=== PATIENT | male | born 2000 | race Caucasian/White ===

== ENCOUNTER 2021-02-01 15:19 | Emergency (ER) | payer OTHER, SELFPAY ==
[2021-02-01] VITALS (9 sets, daily range): BP systolic 126–144; BP diastolic 61–79; PULSE 66–84; RESP 14–21; TEMP 35.9; O2SAT 91–98; BMI 36.1
--- NOTE | 2021-02-01 15:32 | DI.RAD.S_ITS ---
PROCEDURE: XR CHEST 2V INDICATIONS: cough, chest pressure when laying flat TECHNIQUE: 2 views of the chest were acquired. COMPARISON: [facility], , THORACIC SPINE 2 VIEWS, 10/26/2014, 21:32. FINDINGS: Surgical changes and devices: None. Lungs and pleura: Lungs are clear. No pleural effusions or pneumothorax. Mediastinum: Mediastinal contours are normal. Heart size is normal. Bones and chest wall: No suspicious bony abnormalities. Soft tissues appear unremarkable. IMPRESSION: No significant plain film abnormality is seen. Dictated by: Elieser Thompson M.D. on 02/01/2021 at 14:50 Approved by: Elieser Thompson M.D. on 02/01/2021 at 14:50
[2021-02-01 16:08] LABS: COVID19 -Nasal RAPID Negative (Negative)
--- NOTE | 2021-02-01 16:25 | PC.NURSE ---
Patient notified this RN that he does have vague suicidal ideation and has been unsuccessful in the past with attempts because my body won't let me. Patient clarified that when he kills himself he doesn't want to suffer or be left alive. Does not currently have a plan and reports ongoing mental health struggles since childhood. Notified Charge and provider, new orders for social work consult.
[2021-02-01 16:33] LABS: Add Manual Diff / Slide Review NO; Basophils Absolute Auto 0 /uL (0-100); Basophils Percent Auto 0.5 % (0-2); Eosinophils Absolute Auto 100 /uL (0-450); Eosinophils Percent Auto 1.7 % (2-4); Hematocrit 45.2 % (41-53); Lymphocytes Absolute Auto 2200 /uL (1100-4500); Lymphocytes Percent Auto 28.2 % (25-40); Mean Corpuscular HGB Conc 35.4 % (30-36); Mean Corpuscular Hemoglobin 30.6 PG (26-34); Mean Corpuscular Volume 86.4 fL (80-100); Monocytes Absolute Auto 500 /uL (0-900); Monocytes Percent Auto 6.5 % (3-14); Neutrophils Absolute Auto 5000 /uL (1500-7000); Neutrophils Percent Auto 63.1 % (50-75); Platelet Count 252 X10^3/uL (150-400); Red Blood Cell Count 5.23 X10^6/uL (4.5-5.9); Red Cell Distribution Width 12.4 % (11.6-14.8); White Blood Cell Count 7.9 X10^3/uL (4.5-11.0)
--- NOTE | 2021-02-01 16:35 | ED_ITS ---
HPI - General Adult General Chief complaint: Shortness of Breath/Dyspnea Stated complaint: chest pains Time Seen by Provider: 02/01/21 15:56 Source: patient Mode of arrival: Ambulatory History of Present Illness HPI narrative: Patient is a 20-year-old male who is here for evaluation approximately 1 month of shortness of breath and chest discomfort. He states that is been daily for the past month. Does not get better worse throughout the day. Has not tried anything for it. Has not been evaluated. No cough. No fevers. Is unvaccin ated against COVID-19. No prior lung pathology. Describes the chest pain as a pressure. Does not change with movement. Related Data Home Medications Medication Instructions Recorded Confirmed ACETAMINOPHEN 650 mg PO Q6HP PRN #0 tab 12/16/12 Allergies Allergy/AdvReac Type Severity Reaction Status Date / Time citric acid [CITRIC ACID] Allergy Intermediate Unverified 02/01/21 15:31 Review of Systems Constitutional Constitutional: Denies fever(s) and Denies headache(s) ENT Ears, Nose, Mouth, and Throat: Reports system reviewed and no additional complaints, except as documented and Denies headache(s) Cardiovascular Cardiovascular: Reports as per HPI and Reports system reviewed and no additional complaints, except as documented Respiratory Respiratory: Reports as per HPI and Reports system reviewed and no additional complaints, except as documented Gastrointestinal Gastrointestinal: Reports as per HPI and Reports system reviewed and no additional complaints, except as documented Integumentary/Breasts Skin/Breast: Reports system reviewed and no additional complaints, except as documented Neurologic Neurologic: Reports system reviewed and no additional complaints, except as documented and Denies headache(s) Hematologic/Lymphatic On Anticoagulants: No Allergic/Immunologic Allergic/Immunologic: Reports system reviewed and no additional complaints, except as documented Patient History Medical History Strep pharyngitis Social History Smoking Status: Current every day smoker Smoking Status: Current every day smoker alcohol intake frequency: holidays/special occasions only Substance Use Type: marijuana Exam Initial Vital Signs Initial Vital Signs: Vital Signs Temperature 96.6 F L 02/01/21 15:28 Pulse Rate 72 02/01/21 15:28 Respiratory Rate 14 02/01/21 15:28 Blood Pressure 144/69 H 02/01/21 15:28 Pulse Oximetry 97 02/01/21 15:28 Const General: cooperative, healthy appearing and comfortable Limitations: mental status not altered HENMT Head: normal to inspection and normocephalic Neck Neck: normal visual inspection Chest Chest: normal inspection of the chest Resp Effort & Inspection: normal respiratory effort Auscultation: clear to auscultation bilaterally Cardio Rate: regular rate Rhythm: regular rhythm GI Inspection: non-distended Palpation: soft, No firm and No tender Skin General: no rashes or lesions noted Neuro General: patient alert, patient awake, patient oriented x3 and moves all extremities Extrem General: capillary refill normal Psych Appearance: grossly normal and well kempt Course Orders Ordered: ED Orders 02/01/21 15:32 Chest [XR chest 2V] Stat 02/01/21 15:35 EKG-12 Lead Stat 02/01/21 15:38 COVID19 -Nasal swab/Pre-Proc Stat 02/01/21 16:17 Complete Blood Count AUTO DIFF Stat Comprehensive Metabolic Panel Stat Lipase Stat Troponin & CK Cardiac Panel Stat 02/01/21 16:23 Consult to TRIAGE REGISTERED NURSE - Staff Midwife/Apprenticeship Director Stat 02/01/21 16:36 COVID19 -Nasal swab/Pre-Proc Stat RT Consult Eval and Treat Now Discontinued Medications Albuterol (Albuterol 2.5 Mg/3 Ml Neb (Adult)) 2.5 mg INH NOW ONE Stop: 02/01/21 17:05 Last Admin: 02/01/21 17:50 Dose: 2.5 mg Documented by: [facility] Vital Signs Vital signs: Vital Signs - 8 hr 02/01/21 15:28 02/01/21 16:10 02/01/21 16:30 Temperature 96.6 F L Pulse Rate 72 84 83 Respiratory Rate 14 19 Blood Pressure 144/69 H 137/79 Pulse Oximetry 97 98 97 02/01/21 16:31 02/01/21 17:00 02/01/21 17:30 Temperature Pulse Rate 72 66 77 Respiratory Rate 21 18 20 Blood Pressure 126/61 126/77 137/62 Pulse Oximetry 98 96 97 02/01/21 17:52 Temperature Pulse Rate 68 Respiratory Rate 21 Blood Pressure Pulse Oximetry 94 Medical Decision Making Lab Data Lab results reviewed: Yes I reviewed the patient's lab results. Result diagrams: 02/01/21 16:17 02/01/21 16:17 Labs: Lab Results 02/01/21 02/01/21 02/01/21 Range/Units 15:38 16:17 16:17 WBC 7.9 (4.5-11.0) X10^3/uL RBC 5.23 (4.5-5.9) X10^6/uL Hgb 16.0 (13.5-17.5) g/dL Hct 45.2 (41-53) % MCV 86.4 (80-100) fL MCH 30.6 (26-34) PG MCHC 35.4 (30-36) % RDW 12.4 (11.6-14.8) % Plt Count 252 (150-400) X10^3/uL Neut % (Auto) 63.1 (50-75) % Lymph % (Auto) 28.2 (25-40) % Parker % (Auto) 6.5 (3-14) % Eos % (Auto) 1.7 L (2-4) % Baso % (Auto) 0.5 (0-2) % Neut # (Auto) 5000 (1752-0553) /uL Lymph # (Auto) 2200 (2749-5423) /uL Parker # (Auto) 500 (0-900) /uL Eos # (Auto) 100 (0-450) /uL Baso # (Auto) 0 (0-100) /uL Sodium 139 (137-145) mmol/L Potassium 4.2 (3.4-5.1) mmol/L Chloride 103 (98-107) mmol/L Carbon Dioxide 25 (22-32) mmol/L BUN 10 (9-20) mg/dL Creatinine 0.83 (0.66-1.25) mg/dL Estimated GFR > 60.0 (>60) mL/min BUN/Creatinine Ratio 12.0 (6-22) Glucose 97 (70-100) mg/dL Calcium 9.8 (8.4-10.2) mg/dL Total Bilirubin 0.9 (0.2-1.3) mg/dL AST 25 (17-59) IU/L ALT 22 (<50) IU/L Alkaline Phosphatase 75 (38-126) U/L Total Creatine Kinase 84 (55-170) U/L CK-MB (CK-2) TNP CK-MB (CK-2) Rel Index TNP Troponin I < 0.012 (0.01-0.034) ng/mL Total Protein 8.1 (6.3-8.2) g/dL Albumin 4.7 (3.5-5.0) g/dL Globulin 3.4 (1.7-4.1) g/dL Albumin/Globulin Ratio 1.4 (1.0-2.8) Lipase 42 (23-300) U/L SARS-CoV-2 (PCR) Negative (Negative) Imaging Data Chest x-ray: Radiologist's Impression: [address] [address] XRay Report Signed Patient: Ryan Alvarado MR#: [id number] : 2000 Acct:[id number] Age/Sex: 20 / M Date of Service: 02/01/21 Loc: ED Accession Number: [id number] ?? Procedure: XR chest 2V Ordering Provider: Jb Humphrey D.O. PROCEDURE:? XR CHEST 2V ? INDICATIONS:? cough, chest pressure when laying flat ? TECHNIQUE:? 2 views of the chest were acquired.? ? COMPARISON:? [facility], , THORACIC SPINE 2 VIEWS, 10/26/2014, 21:32. ? FINDINGS:? ? Surgical changes and devices:? None.? ? Lungs and pleura:? Lungs are clear.? No pleural effusions or pneumothorax.? ? Mediastinum:? Mediastinal contours are normal.? Heart size is normal.? ? Bones and chest wall:? No suspicious bony abnormalities.? Soft tissues appear unremarkable.? ? IMPRESSION:? ? No significant plain film abnormality is seen. ? ? Dictated by: Elieser Thompson M.D. on 02/01/2021 at 14:50 ? ? Approved by: Elieser Thompson M.D. on 02/01/2021 at 14:50? ECG Data Attestation: I personally reviewed and interpreted this ECG as follows: Prior ECG tracings: not available for review Interpretation: Sinus rhythm Ventricular rate of 74 Normal axis Normal QRS Normal QTC No ST T wave changes MDM Narrative Medical decision making narrative: EKG is unremarkable. Chest x-ray is unremarkable. Labs unremarkable. No signs of infection. No indication for antibiotics. He was given a nebulizer treatment which she states did not changes discomfort. Not in heart failure. During the screening exam patient states he occasionally has thoughts of suicidal ideation. Patient was seen by social work. Patient is not voluntary. Social work did discuss the case with the [facility] who did not specifically evaluate the patient a given our discussion did not think that he would meet the criteria for an involuntary admission. Patient did state that he would return to the emergency department if he felt like he was getting more depressed or had thoughts of hurting himself. Patient states he felt safe to go home. Unsure the exact etiology of his shortness of breath and chest discomfort however low suspicion for ACS. Low suspicion for PE. Low suspicion for pneumonia. He was given follow-up instructions. He expressed understanding and agreement. Discharge Plan Departure Patient Disposition: Home Clinical Impression: Atypical chest pain Instructions: DI for Atypical Chest Pain Activity Restrictions/Additional Instructions: I recommend that he use the resources that were provided to you. Please return to the emergency department if you start to feel depressed or have thoughts of hurting yourself. Your workup here in the emergency department is very reassuring. There is no signs of any infection. Your heart and lungs both look well. You can contact the call center at [phone] help establish a primary provider. Prescriptions: No Action ACETAMINOPHEN 650 mg PO Q6HP PRNQty: 0 0RF Referrals: Cristian Bocanegra MD [Primary Care Provider] -
[2021-02-01 16:40] LABS: Alanine Aminotransferase 22 IU/L (<50); Albumin 4.7 g/dL (3.5-5.0); Albumin Globulin Ratio 1.4 (1.0-2.8); Alkaline Phosphatase 75 U/L (38-126); Aspartate Aminotransferase 25 IU/L (17-59); Bilirubin Total 0.9 mg/dL (0.2-1.3); Blood Urea Nitrogen 10 mg/dL (9-20); Calcium 9.8 mg/dL (8.4-10.2); Carbon Dioxide 25 mmol/L (22-32); Chloride 103 mmol/L (98-107); Creatine Kinase 84 U/L (55-170); Estimated Glomerular Filt Rate > 60.0 mL/min (>60); Globulin 3.4 g/dL (1.7-4.1); Glucose 97 mg/dL (70-100); HEMOLYSIS < 15 (0-50); Lipase 42 U/L (23-300); Potassium 4.2 mmol/L (3.4-5.1); Sodium 139 mmol/L (137-145); Total Protein 8.1 g/dL (6.3-8.2)
[2021-02-01 17:24] LABS: Troponin I < 0.012 ng/mL (0.01-0.034)
--- NOTE | 2021-02-01 17:41 | CM.SWNOTE ---
ASSISTANT FINANCIAL ACCOUNTANT Assessment ASSISTANT FINANCIAL ACCOUNTANT - Transport Tech Assessment ASSISTANT FINANCIAL ACCOUNTANT/Transport Tech Assessment Time Spent with Patient Start date 02/01/21 Visit Start Time 16:30 End date 02/01/21 Visit End Time 16:50 Total time Care Management spent on 20 patient visit-in minutes Mental Health Screening Include Onset, Duration, Intensity Presenting Problem Patient presents to ED with concern for shortness of breath. In passing, patient informs RN that he has SI with plans since childhood and if he attempted to kill self he would want it to actually kill him. Precipitating Event(s) Patient is homeless with limited family supports. Patient Strengths Patient states his family would be sad if he and that is what is keeping him alive, Patient states that he feels safe. Current Behavioral Health Provider(s) None, patient endorses he is Include Facility, Provider, Ph. # not interested in providers. Psych. Hx Mental Health and Chemical No reported MH dx. Patient Dependency presents with depression and SI. Patient is an everyday smoker, occasional ETOH use and patient endorses THC use. Family Hx of Behavioral Abuse None reported Psychiatric Hospitalizations (date(s)/ None reported location) Psychosocial information & Support Patient is 20 y/o male who Systems endorses that he has been homeless since the age of 17. Patient states that he resides in [place] area sometimes and stays at family's home as needed. Patient endorses he will can stay at his sister's dad's house this evening. School/Work None reported Legal Concerns Legal Matters - Outstanding Issues None reported Mental Status Orientation (Person/Place/Time) A/Ox4 Stated Mood fine Affect (Congruent with Mood?) flat, congruent with mood Thought Content - Specify/Describe None reported Obsessions, Delusions, Hallucinations Thought Processes (Nnxsoso-Geghdscr-Zjnv coherent Rhdplsle-Swgmftjv-Ytnpdipkdw- Nuszdxosmwisnk-Sgsebkp-Xudtoppnddrk- Thought Blocking) Speech (Xhvrdk-Ofwa-Mdifboi-Rapid-Soft- normal Loud-Pressured) Motor (Nlabia-Azxxlsbro-Zjln-Other) normal, not formally assessed Insight (Hfyn-Tlyb-Usbo/Limited) fair/limited Judgement (Nymw-Pmtm-Hlgw/Limited) poor/fair Impulse Control (Adequate-Impaired) adequate Memory (Jrjygxcyz-Uexcug-Fcxwbe, intact, not formally assessed Impaired-Intact) Concentration (Intact-Impaired) intact Attention (Intact-Impaired) intact Behavior (Appropriate-Inappropriate) appropriate Additional Comment patient is calm and communicative Risk Assessment Suicidal Ideation (Plan) Yes Homicidal Ideation (Plan) No Comment Patient endorses daily SI since childhood. Patient endorses that this is the norm for him. Patient endorses self harm and shows scars on both of his arms. Patient endorses that if there were a gun in this room he would shoot self and patient would be when ASSISTANT FINANCIAL ACCOUNTANT returns . Patient endorses thoughts of running into traffic and states that everyone has these thoughts. Patient endorsed to RN that he has not been to a doctor since he was 13 y/o because I do not want to be here anymore. Patient endorses that his family is the only reason he is still alive. Patient states that I would have done it by now if it were up to me. Intervention Intervention ASSISTANT FINANCIAL ACCOUNTANT receives consult and enters room. Patient endorses his thoughts of SI with plan and states that he has no interest to seek support for these thoughts. patient endorses that this is his normal state of mind. Patient states I am , I exist. Patient states he is homeless, does not doing anything for enjoyment and just lives. Patient endorses some family support but states that it is limited and he stays with family sometimes. Patient states that his family is the reason why he is still alive. Patient feels obligated to stay alive due to their feelings. Patient states that if he was going to kill himself he would have done it by now. Patient states he feels safe discharging if he was medically clear to do so. Patient denies wanting to go to voluntary inpatient treatment or seek a BH provider. ASSISTANT FINANCIAL ACCOUNTANT reviews this with ED provider who suggests ASSISTANT FINANCIAL ACCOUNTANT calls [facility] to consult patient. ASSISTANT FINANCIAL ACCOUNTANT calls [facility] crisis line and discusses patient with [facility] intake and requests return call from [facility]. It is reported that based on ASSISTANT FINANCIAL ACCOUNTANT's description, patient does not meet detainment criteria because patient feels safe and his family is preventing him from killing self. ASSISTANT FINANCIAL ACCOUNTANT to await f/u call from [facility]. It is the opinion of this ASSISTANT FINANCIAL ACCOUNTANT that patient would benefit from inpatient hospitalization but patient is not voluntary to do so and it is undetermined if patient would meet [facility] criteria at this time. Patient endorses his safety upon d/c. ASSISTANT FINANCIAL ACCOUNTANT reviews this with ED provider who indicates agreement and understanding Plan RA Plan ASSISTANT FINANCIAL ACCOUNTANT to consult further with [facility] to determine dispatch for [facility] or not. IBETH Goemz
[2021-02-01] MEDS: ALBUTEROL 2.5 MG/3 ML NEB (ADULT) INH (17:50)
--- NOTE | 2021-02-01 18:14 | CM.SWNOTE ---
MACERATOR OPERATOR Note MACERATOR OPERATOR consults with VIVEK Sierra who determines that patient appears to be able to contract for safety due to family as a protective factor and patient endorsing his safety. Rigo suggests MACERATOR OPERATOR ask patient about contacting family, providing patient with crisis contact information and informing patient that he can return to the ED. It is discussed that at this moment patient is not in need of a [facility] dispatch for assessment. MACERATOR OPERATOR enters room to meet with patient again. Patient provides consent for MACERATOR OPERATOR to contact patient's step father, where he is going tonight. Patient endorses need for taxi to location. Patient endorses his hx of suicide attempts several years ago, drinking bleach, drinking rat poison and trying to hang himself and most recently a few years ago he tried to cut himself. Patient states that for the most part he has given up on trying to kill self. MACERATOR OPERATOR calls patient's step father Neal Arora and leaves requesting return call. MACERATOR OPERATOR attempts to call patient's mother but the phone line is busy. Per business development sales executive, mother stated that the plan is for patient to stay with step father. Patient agrees to return to ED if needed, patient agrees to accept crisis contact information from MACERATOR OPERATOR. Plan: Patient to d/c to step father's home when medically clear. IBETH Gomez
== END 2021-02-01 18:44 | disposition home or self-care (01) ==
PROVIDERS: Emergency Provider Emergency Medicine; Family Provider Pediatrics; PCP Pediatrics
DX: R07.89 Other chest pain (principal); R06.02 Shortness of breath; R45.851 Suicidal ideations; Z20.822 Contact with and (suspected) exposure to COVID-19
CPT/HCPCS: 36415; 71046; 80053; 82550; 83690; 84484; 85025; 87635; 93005; 94640; 99284; C9803; J7613

== ENCOUNTER → 2024-05-16 14:22 | Outpatient (CLI) | payer OTHER, SELFPAY ==
--- NOTE | 2024-05-16 14:24 | DI.RAD.S_ITS ---
PROCEDURE: XR CHEST 2V INDICATIONS: cough, tob use TECHNIQUE: 2 views of the chest were acquired. COMPARISON: [facility], CR, XR CHEST 2V, 02/01/2021, 15:26. FINDINGS: Surgical changes and devices: None. Lungs and pleura: Lungs are clear. No pleural effusions or pneumothorax. Mediastinum: Mediastinal contours are normal. Heart size is normal. Bones and chest wall: No suspicious bony abnormalities. Soft tissues appear unremarkable. IMPRESSION: No acute cardiopulmonary abnormality is seen. Dictated by: Jamie Paris M.D. on 05/18/2024 at 8:06 Approved by: Jamie Paris M.D. on 05/18/2024 at 8:06
[2024-05-16 14:42] LABS: Add Manual Diff / Slide Review NO; Basophils Absolute Auto 100 /uL (0-100); Basophils Percent Auto 1.1 % (0-2); Eosinophils Absolute Auto 100 /uL (0-450); Eosinophils Percent Auto 0.9 % (2-4); Hematocrit 45.9 % (41-53); Hemoglobin 16.1 g/dL (13.5-17.5); Lymphocytes Absolute Auto 2300 /uL (1100-4500); Lymphocytes Percent Auto 30.2 % (25-40); Mean Corpuscular Hemoglobin 30.7 PG (26-34); Mean Corpuscular Volume 87.7 fL (80-100); Monocytes Absolute Auto 600 /uL (0-900); Monocytes Percent Auto 7.5 % (3-14); Neutrophils Absolute Auto 4600 /uL (1500-7000); Neutrophils Percent Auto 60.3 % (50-75); Platelet Count 254 X10^3/uL (150-400); Red Blood Cell Count 5.24 X10^6/uL (4.5-5.9); Red Cell Distribution Width 12.8 % (11.6-14.8); White Blood Cell Count 7.6 X10^3/uL (4.5-11.0)
[2024-05-16 15:05] LABS: Alanine Aminotransferase 30 IU/L (<50); Albumin 4.8 g/dL (3.5-5.0); Albumin Globulin Ratio 1.5 (1.0-2.8); Alkaline Phosphatase 65 U/L (38-126); Aspartate Aminotransferase 31 IU/L (17-59); BUN Creatinine Ratio 17.1 (6-22); Bilirubin Total 1.1 mg/dL (0.2-1.3); Blood Urea Nitrogen 13 mg/dL (9-20); Calcium 9.6 mg/dL (8.4-10.2); Carbon Dioxide 20 mmol/L (22-32); Chloride 105 mmol/L (98-107); Estimated Glomerular Filt Rate > 60 mL/min (>60); Globulin 3.3 g/dL (1.7-4.1); Glucose 100 mg/dL (70-100); HEMOLYSIS < 15 (0-50); Potassium 4.5 mmol/L (3.4-5.1); Sodium 138 mmol/L (137-145); Total Protein 8.1 g/dL (6.3-8.2)
[2024-05-16 15:36] LABS: TSH w/ Reflex to FT4 2.23 uIU/mL (0.47-4.68)
[2024-05-16 15:55] LABS: Vitamin B12 609 pg/mL (239-931)
== END ==
LOC: RAD 14:23
PROVIDERS: Family Provider Pediatrics; PCP Family Medicine; Referring Provider Family Medicine; Visit Provider Family Medicine
DX: R05.9 Cough, unspecified (principal); F17.200 Nicotine dependence, unspecified, uncomplicated; R53.82 Chronic fatigue, unspecified; F41.1 Generalized anxiety disorder; E63.9 Nutritional deficiency, unspecified
CPT/HCPCS: 36415; 71046; 80053; 82306; 82607; 84443; 85025

== ENCOUNTER 2024-05-27 14:58 | Emergency (ER) | payer OTHER, SELFPAY ==
[2024-05-27 15:06] VITALS: BP 153/70; PULSE 91; RESP 24; TEMP 36.4; O2SAT 98; BMI 33.5
--- NOTE | 2024-05-27 15:12 | DI.RAD.S_ITS ---
PROCEDURE: XR CHEST 1V INDICATIONS: Shortness of breath TECHNIQUE: One view of the chest was acquired. COMPARISON: [facility], , XR CHEST 2V, 05/16/2024, 14:41. [facility], CR, XR CHEST 2V, 02/01/2021, 15:26. FINDINGS: Surgical changes and devices: None. Lungs and pleura: Lungs are clear. No pleural effusions or pneumothorax. Peribronchial cuffing. Mediastinum: Mediastinal contours are normal. Heart size is normal. Bones and chest wall: No suspicious bony abnormalities. Soft tissues appear unremarkable. IMPRESSION: Peribronchial cuffing, typically indicating infectious or inflammatory bronchitis. Dictated by: Moreno Quiroz M.D. on 05/27/2024 at 15:52 Approved by: Moreno Quiroz M.D. on 05/27/2024 at 15:53
[2024-05-27 16:03] LABS: Influenza A - CEPHEID Flu A NEGATIVE (NEGATIVE); Influenza B - CEPHEID Flu B NEGATIVE (NEGATIVE); Respiratory Syncytial Virus Negative (Negative)
[2024-05-27 16:04] LABS: COVID-19 CEPHEID 4-PLEX PCR Negative (Negative)
--- NOTE | 2024-05-27 16:05 | ED_ITS ---
HPI - URI/Sore Throat <Harleen Pittman PA-C - Last Filed: 05/27/24 18:06> General Chief Complaint: Upper Respiratory Symptoms Stated Complaint: SOB sinus infection Time Seen by Provider: 05/27/24 15:17 Source: patient and family Mode of arrival: Ambulatory History of Present Illness HPI Narrative: 23-year-old male with past medical history generalized anxiety disorder, agoraphobia, tobacco dependence presents to the ED with 6 days of URI symptoms. Patient complains of a sore throat, rhinorrhea, congestion, cough. No fever, chills, chest pain, shortness of breath, lightheadedness, dizziness, syncope. Related Data Previous Rx's Medication Instructions Recorded cetirizine 10 mg tablet (Zyrtec) 10 mg PO DAILY PRN allergy 05/16/24 symptoms #90 tabs fluoxetine 20 mg capsule (Prozac) 20 mg PO DAILY #30 caps 05/16/24 gabapentin 300 mg capsule 300 mg PO Q8H PRN anxiety #90 caps 05/16/24 Allergies Allergy/AdvReac Type Severity Reaction Status Date / Time citric acid [CITRIC ACID] Allergy Intermediate Verified 05/16/24 13:46 Review of Systems <Harleen Pittman PA-C - Last Filed: 05/27/24 18:06> Constitutional Constitutional: Denies chills, Denies fatigue, Denies fever(s), Denies frequent falls, Denies lethargy and Denies weakness Eyes Eyes: Denies change in vision, Denies eye discharge, Denies irritation and Denies loss of vision ENT Ears, Nose, Mouth, and Throat: Denies change in voice, Denies dizziness, Reports nasal discharge, Denies neck pain, Reports sore throat and Denies throat swellin g Cardiovascular Cardiovascular: Denies chest pain, Denies irregular heart rhythm, Denies lightheadedness, Denies palpitations, Denies dyspnea, Denies dyspnea on exertion and Denies orthopnea Respiratory Respiratory: Reports chest congestion, Reports cough, Denies dyspnea, Denies dyspnea on exertion and Denies wheezing Gastrointestinal Gastrointestinal: Denies abdominal pain, Denies change in bowel habits, Denies diarrhea, Denies nausea and Denies vomiting Musculoskeletal Musculoskeletal: Denies neck pain and Denies numbness Integumentary/Breasts Skin/Breast: Denies pruritus, Denies erythema, Denies rash and Denies wounds Neurologic Neurologic: Denies behavioral changes, Denies confusion, Denies dizziness, Denies frequent falls, Denies loss of vision, Denies numbness and Denies weakness Psychiatric Psychiatric: Denies anxiety, Denies behavioral changes, Denies confusion, Denies depression, Denies homicidal ideation and Denies suicidal ideation Endocrine Endocrine: Denies fatigue, Denies flushing and Denies palpitations Hematologic/Lymphatic Hematologic/Lymphatic: Denies easy bruising Allergic/Immunologic Allergic/Immunologic: Denies urticaria, Denies throat swelling and Denies wheezing Patient History <Harleen Pittman PA-C - Last Filed: 05/27/24 18:06> Medical History Tobacco dependence FRED (generalized anxiety disorder) Agoraphobia Strep pharyngitis Social History Smoking Status: Current every day smoker Smoking Status: Current every day smoker tobacco type: cigarettes alcohol intake frequency: holidays/special occasions only Exam <Harleen Pittman PA-C - Last Filed: 05/27/24 18:06> Narrative Exam Narrative: Const General:?cooperative, healthy appearing and comfortable [facility] Head:?normal to inspection Ears:?hearing grossly normal bilaterally; bilateral tympani normal Nose:?external nose normal Face and sinus:?normal facial exam and sinuses nontender Mouth:?oral mucosae normal Throat:?posterior oropharynx normal Eyes General:?appearance normal, both eyes and all related structures Neck Neck:?normal visual inspection and no lymphadenopathy noted Resp Effort & Inspection:?normal respiratory effort Auscultation:?clear to auscultation bilaterally Cardio Rate:?regular rate Rhythm:?regular rhythm Neuro General:?patient alert, patient awake and patient oriented x3 Initial Vital Signs Initial Vital Signs: Vital Signs Temperature 97.6 F 05/27/24 15:06 Pulse Rate 91 H 05/27/24 15:06 Respiratory Rate 24 05/27/24 15:06 Blood Pressure 153/70 H 05/27/24 15:06 Pulse Oximetry 98 05/27/24 15:06 Oxygen Delivery Method Room Air 05/27/24 15:06 <Christopher Hansen MD - Last Filed: 05/27/24 21:13> Initial Vital Signs Initial Vital Signs: Vital Signs Temperature 97.6 F 05/27/24 15:06 Pulse Rate 91 H 05/27/24 15:06 Respiratory Rate 24 05/27/24 15:06 Blood Pressure 153/70 H 05/27/24 15:06 Pulse Oximetry 98 05/27/24 15:06 Oxygen Delivery Method Room Air 05/27/24 15:06 Course <Harleen Pittman PA-C - Last Filed: 05/27/24 18:06> Orders Ordered: ED Orders 05/27/24 15:12 XR chest 1V Stat Covid-19 + FLU A/B + RSV - PCR Stat 05/27/24 15:27 Consult to [facility] [place] - Mobility Specialist Stat 05/27/24 16:20 Strep Grp A by PCR Rapid Stat Throat Culture Stat Vital Signs Vital signs: Vital Signs - 8 hr 05/27/24 15:06 05/27/24 17:20 Temperature 97.6 F 98.4 F Pulse Rate 91 H 84 Respiratory Rate 24 20 Blood Pressure 153/70 H 148/60 H Pulse Oximetry 98 99 Oxygen Delivery Method Room Air Room Air <Christopher Hansen MD - Last Filed: 05/27/24 21:13> Orders Ordered: ED Orders 05/27/24 15:12 XR chest 1V Stat Covid-19 + FLU A/B + RSV - PCR Stat 05/27/24 15:27 Consult to [facility] [place] - Mobility Specialist Stat 05/27/24 16:20 Strep Grp A by PCR Rapid Stat Throat Culture Stat Vital Signs Vital signs: Vital Signs - 8 hr 05/27/24 15:06 05/27/24 17:20 Temperature 97.6 F 98.4 F Pulse Rate 91 H 84 Respiratory Rate 24 20 Blood Pressure 153/70 H 148/60 H Pulse Oximetry 98 99 Oxygen Delivery Method Room Air Room Air MDM - URI/Sore Throat <Harleen Pittman PA-C - Last Filed: 05/27/24 18:06> Lab Data Labs: Lab Results 05/27/24 05/27/24 Range/Units 15:12 16:20 SARS-CoV-2 (PCR) Negative (Negative) Influenza A (RT-PCR) Flu a negative (NEGATIVE) Influenza B (RT-PCR) Flu b negative (NEGATIVE) RSV (PCR) Negative (Negative) Group A Strep (PCR) Negative (Negative) MDM Narrative Medical decision making narrative: 23-year-old male with past medical history generalized anxiety disorder, agoraphobia, tobacco dependence presents to the ED with 6 days of URI symptoms. Strep POC is negative. Chest x-ray shows some peribronchial cuffing, bronchitis, no pneumonia. Respiratory swab was negative for COVID-19, RSV, influenza. Physical exam is reassuring for bilateral lungs clear to ausculta tion. Patient is breathing comfortably. Recommend loco-cpi-mitetih cough and cold remedies, good hydration. Recommend follow-up with PCP as soon as possible. ED return precautions discussed with patient. Patient verbalized understanding. Medical records reviewed: Yes <Christopher Hansen MD - Last Filed: 05/27/24 21:13> Lab Data Labs: Lab Results 05/27/24 05/27/24 Range/Units 15:12 16:20 SARS-CoV-2 (PCR) Negative (Negative) Influenza A (RT-PCR) Flu a negative (NEGATIVE) Influenza B (RT-PCR) Flu b negative (NEGATIVE) RSV (PCR) Negative (Negative) Group A Strep (PCR) Negative (Negative) Discharge Plan Departure Patient Disposition: Home Clinical Impression: Upper respiratory infection Qualifiers: URI type: unspecified viral URI Qualified Code(s): J06.9 - Acute upper respiratory infection, unspecified Instructions: DI for Viral Upper Respiratory Infection -- Adult Activity Restrictions/Additional Instructions: you were evaluated in the emergency department for congestion and upper respiratory infection symptoms. Your respiratory panel was negative for influenza, COVID-19, RSV. The strep point of care test was also negative. Your chest x-ray shows bronchitis which is an inflammation of the airways that occurs when you have a cold. It is recommended that you drink plenty of water, rest well, you may take any [id number] cough and cold remedies for relief. Please follow-up with your primary care doctor as soon as possible. Return to the ED if you have worsening symptoms such as chest pain, trouble breathing. Prescriptions: No Action gabapentin 300 mg capsule 300 mg PO Q8H PRN (Reason: anxiety) Qty: 90 11RF fluoxetine [Prozac] 20 mg capsule 20 mg PO DAILY Qty: 30 11RF cetirizine [Zyrtec] 10 mg tablet 10 mg PO DAILY PRN (Reason: allergy symptoms) Qty: 90 3RF Referrals: Rosario Pulido DO [Primary Care Provider] - Stand Alone Forms: Patient Portal/API/Survey ED Sign-out <Christopher Hansen MD - Last Filed: 05/27/24 21:13> Cosign ED Attending Shyanne Attestation: I was immediately available in the department for consultation. This documentation has been reviewed and I agree with assessment and plan. Supervised by Christopher Hansen MD
[2024-05-27 16:46] LABS: Strep Grp A by PCR Rapid Negative (Negative)
[2024-05-27 17:20] VITALS: BP 148/60; PULSE 84; RESP 20; TEMP 36.9; O2SAT 99
== END 2024-05-27 17:10 | disposition home or self-care (01) ==
PROVIDERS: Emergency Medicine; Emergency Provider Student in an Organized Health Care Education/Training Program; Family Provider Pediatrics; PCP Family Medicine
DX: J06.9 Acute upper respiratory infection, unspecified (principal); R06.02 Shortness of breath
CPT/HCPCS: 0241U; 71045; 87070; 87147; 87651; 99281; 99283